=== PATIENT | male | born 1980 | race Caucasian/White ===

== ENCOUNTER 2021-05-20 14:01 | Emergency (ER) | payer MEDICAID, OTHER ==
--- NOTE | 2021-05-20 14:38 | EDM.PDOC ---
ED HPI GENERAL MEDICAL PROBLEM - General Chief Complaint: General Stated Complaint: FELL DOWN STEPS AND DAMAGED HIS RIBS Time Seen by Provider: 05/20/21 14:03 Source of Information: Reports: Patient History Limitations: Reports: No Limitations - History of Present Illness INITIAL COMMENTS - FREE TEXT/NARRATIVE: HISTORY AND PHYSICAL: History of present illness: Patient is a 40-year-old male who presents emergency room today with concern of right-sided rib injury that occurred yesterday. Patient states that he was walking up the stairs and was holding a box when he tripped on the step and fell forward. Patient states the box fell but he ended up hitting the right side of his rib on the stair. Patient states that he did not fall down the stairs or hit his head or lose consciousness. Patient states today he has pain with deep inspiration over the area that hit the stair but states he is otherwise able to breathe without difficulty. Patient denies any other symptoms or concerns. Patient denies fever, chills, chest pain, shortness of breath, or cough. Denies headache, neck stiff ness, change in vision, syncope, or near syncope. Denies nausea, vomiting, abdominal pain, diarrhea, constipation, or dysuria. Has not noted any blood in urine or stool. Patient has been eating and drinking appropriately. Review of systems: As per history of present illness and below otherwise all systems reviewed and negative. Past medical history: As per history of present illness and as reviewed below otherwise noncontributory. Surgical history: As per history of present illness and as reviewed below otherwise noncontributory. Social history: See social history for further information Family history: As per history of present illness and as reviewed below otherwise noncontributory. Physical exam: General: Patient is alert, oriented, and in no acute distress. Patient sitting comfortably on exam table. Vitals stable and reviewed by me. HEENT: Atraumatic, normocephalic, pupils equal and reactive bilaterally, negative for conjunctival pallor or scleral icterus, mucous membranes moist, TMs normal bilaterally, throat clear, neck supple, nontender, trachea midline. No drooling or trismus noted. No meningeal signs. No hot potato voice noted. Lungs/ribs: Patient has pain to palpation of ribs #7 and 8 on the anterior rib cage on the right without crepitus to palpation. Otherwise, clear to auscultation, breath sounds equal bilaterally, chest nontender. Heart: S1S2, regular rate and rhythm without overt murmur Abdomen: Soft, nondistended, nontender. Negative for masses or hepatosplenomegaly. Negative for costovertebral tenderness. Pelvis: Stable nontender. Genitourinary: Deferred. Rectal: Deferred. Skin: Intact, warm, dry. No lesions or rashes noted. Extremities: Atraumatic, negative for cords or calf pain. Neurovascular unremarkable. Neuro: Awake, alert, oriented. Cranial nerves II through XII unremarkable. Cerebellum unremarkable. Motor and sensory unremarkable throughout. Exam nonfocal. Notes: Signs symptoms that were prompt return to the ED thoroughly discussed with patient. Discussed importance for follow-up with primary care provider. Voices understanding and is agreeable to plan of care. Denies any further questions or concerns at this time. Diagnostics: Rib right with chest x-ray Therapeutics: I did offer Toradol, ibuprofen, or Tylenol and patient declines at this time Prescription: Incentive spirometer Impression: Right-sided rib injury Plan: 1. Rest, ice, elevate the affected area. You can apply ice 15 minutes on, 15 minutes off. 2. Tylenol and/or Ibuprofen as directed for pain management or discomfort. 3. Follow up with the primary care provider as discussed. Return to the ED as needed and as discussed. 4. Use the incentive spirometer 3 times a day for the next 5 days as directed and as discussed. Definitive disposition and diagnosis as appropriate pending reevaluation and review of above. Right ribs Pain Score (Numeric/FACES): 8 - Related Data Allergies Allergy/AdvReac Type Severity Reaction Status Date / Time ampicillin Allergy Cannot Verified 05/20/21 14:22 Remember cephalexin [From Keflex] Allergy Cannot Verified 05/20/21 14:22 Remember Penicillins Allergy Cannot Verified 05/20/21 14:22 Remember Home Meds: Home Meds Verapamil HCl [Verapamil Sr] 180 mg PO DAILY 05/20/21 [History] Past Medical History - Past Health History Medical/Surgical History: Denies Medical/Surgical History - Infectious Disease History Infectious Disease History: Reports: None Social & Family History - Family History Family Medical History: No Pertinent Family History - Tobacco Use Tobacco Use Status *Q: Never Tobacco User - Caffeine Use Caffeine Use: Reports: None - Recreational Drug Use Recreational Drug Use: No ED ROS GENERAL - Review of Systems Review Of Systems: Comprehensive ROS is negative, except as noted in HPI. ED EXAM, GENERAL - Physical Exam Exam: See Below (See dictation) Course - Vital Signs Last Recorded V/S: Last Vital Signs Temp 98.3 F 05/20/21 14:23 Pulse 87 05/20/21 14:23 Resp 18 05/20/21 14:23 BP 118/67 05/20/21 14:23 Pulse Ox 98 05/20/21 14:23 - Orders/Labs/Meds Orders: Active Orders 24 hr Category Date Time Status DME for Discharge [COMM] Stat Oth 05/20/21 15:45 Ordered Departure - Departure Time of Disposition: 15:45 Disposition: Home, Self-Care 01 Clinical Impression: Rib injury - Discharge Information Instructions: Blunt Chest Trauma Referrals: PCP,None [Primary Care Provider] - Forms: ED Department Discharge Additional Instructions: The following information is given to patients seen in the emergency department who are being discharged to home. This information is to outline your options for follow-up care. We provide all patients seen in our emergency department with a follow-up referral. The need for follow-up, as well as the timing and circumstances, are variable depending upon the specifics of your emergency department visit. If you don't have a primary care physician on staff, we will provide you with a referral. We always advise you to contact your personal physician following an emergency department visit to inform them of the circumstance of the visit and for follow-up with them and/or the need for any referrals to a consulting specialist. The emergency department will also refer you to a specialist when appropriate. This referral assures that you have the opportunity for follow-up care with a specialist. All of these measure are taken in an effort to provide you with optimal care, which includes your follow-up. Under all circumstances we always encourage you to contact your private physician who remains a resource for coordinating your care. When calling for follow-up care, please make the office aware that this follow-up is from your recent emergency room visit. If for any reason you are refused follow-up, please contact the [facility] Emergency Department at and asked to speak to the emergency department charge nurse. [facility] Primary Care [address] [place] [address] [place] [id number] [facility] [address] [place] [address] 1. Rest, ice, elevate the affected area. You can apply ice 15 minutes on, 15 minutes off. 2. Tylenol and/or Ibuprofen as directed for pain management or discomfort. 3. Follow up with the primary care provider as discussed. Return to the ED as needed and as discussed. 4. Use the incentive spirometer 3 times a day for the next 5 days as directed and as discussed. Sepsis Event Note (ED) - Evaluation Sepsis Screening Result: No Definite Risk - Focused Exam Vital Signs: Vital Signs Temp Pulse Resp BP Pulse Ox 05/20/21 14:23 98.3 F 87 18 118/67 98 - My Orders Last 24 Hours: My Active Orders 05/20/21 15:45 DME for Discharge [COMM] Stat - Assessment/Plan Last 24 Hours: My Active Orders 05/20/21 15:45 DME for Discharge [COMM] Stat
--- NOTE | 2021-05-20 15:24 | CR ---
Indication: Fell downstairs. Anterior rib pain. Technique: PA view of the chest. Two views of the right ribs. Comparison: None Findings: The heart is normal in size. The lungs are clear. No infiltrate, pleural effusion, or pneumothorax is identified. No displaced right rib fractures are identified. Impression: No displaced right rib fractures. Dictated by Brittani Ambrosio MD @ 05/20/2021 3:22:[address] Brittani Ambrosio @ May 20 2021 3:22PM
== END 2021-05-20 15:55 | disposition home or self-care (01) ==
LOC: MW.ED 14:01
DX: S29.9XXA Unspecified injury of thorax, initial encounter (principal); Z88.0 Allergy status to penicillin; Z88.1 Allergy status to other antibiotic agents; W10.9XXA Fall (on) (from) unspecified stairs and steps, initial encounter; Y93.01 Activity, walking, marching and hiking
CPT/HCPCS: 71101-26-RT; 71101-RT; 99283-25